=== PATIENT | female | born 1950 | race Caucasian/White ===

== ENCOUNTER → 2016-08-23 | Outpatient (CLI) | payer BC ==
[~2016-08-23] MED LIST: REGADENOSON 0.4 MG/5 ML DISP.SYRIN. IV ONE
== END | disposition home or self-care (01) ==
LOC: PCVCIMAG 07:47
PROVIDERS: ATTEND Internal Medicine Cardiovascular Disease
DX: I10 Essential (primary) hypertension (principal); R06.00 Dyspnea, unspecified; I73.9 Peripheral vascular disease, unspecified; J44.9 Chronic obstructive pulmonary disease, unspecified; Z82.49 Family history of ischemic heart disease and other diseases of the circulatory system
CPT/HCPCS: 78452; 93017; 93306; A9500; J2785